=== PATIENT | male | born 1995 | race Caucasian/White ===

== ENCOUNTER 2017-04-10 08:36 | Emergency (ER) | payer OTHER ==
[~2017-04-10] VITALS: Ht 162.6 cm; Wt 65.9 kg
--- NOTE | 2017-04-10 10:22 | REP ---
Scrotal ultrasound, stat request: The patient complains of left groin/testicular pain. The testes are normal size. Right testis measures 4.3 x 2.1 x 2.7 cm. Left testis measures 4.3 x 2.2 x 2.9 cm. The testicular parenchyma is homogeneous. There are no testicular masses. With the Doppler assessment there is vascular flow in both testes, the Doppler resistive index of the intraparenchymal arteries on the right measuring 0.44 on the left 0.50. The right and left epididymal heads are unremarkable. There is a 6 mm tunica vaginalis cyst at the upper pole of the left testis medially, not related to the epididymis, but no clinical significance. Impression: Essentially negative scrotal ultrasound. A tunica vaginalis cyst of the left testis is incidentally identified. Signed by Marcio Christian MD 04/10/2017 10:14 A
--- NOTE | 2017-04-10 10:24 | REP ---
Ultrasonography of the left inguinal area for hernia: The study is performed without and with Valsalva. During Valsalva herniation of omental fat into the upper inguinal canal is identified. No bowel herniation is identified. The hernia is easily reducible. Signed by Marcio Christian MD 04/10/2017 10:16 A
[2017-04-10] MEDS ORDERED: IBUP80TA PO (11:07)
[2017-04-10 11:21] VITALS: BP 118/63
== END 2017-04-10 11:26 | disposition home or self-care (01) ==
LOC: M ED 08:36
DX: K40.90 Unilateral inguinal hernia, without obstruction or gangrene, not specified as recurrent (principal); F17.210 Nicotine dependence, cigarettes, uncomplicated

== ENCOUNTER 2017-07-01 07:35 | Day surgery (SDC) | payer OTHER ==
[~2017-07-01] VITALS: Ht 162.6 cm; Wt 65.8 kg
[~2017-07-01 07:35] MED LIST: IBUP80TA PO
[2017-07-01] MEDS ORDERED: LR 1,000 ML IV SCH ×2 (07:45→12:30)
[2017-07-01] MEDS ORDERED: BUPIVACAINE HCL 0.25% 30 ML VIAL As Ordered ONE (09:36)
[2017-07-01] MEDS ORDERED: LIDOCAINE 1% SDV INJ 30 ML VIAL As Ordered ONE (09:36)
[2017-07-01] MEDS ORDERED: ROCURONIUM BROMIDE 50 MG/5 ML VIAL/SYRINGE As Ordered ONE (10:22)
[2017-07-01] MEDS ORDERED: LIDOCAINE 2% INJ 100 MG/5 ML SDV (FOR ANES.) As Ordered ONE (10:22)
[2017-07-01] MEDS ORDERED: PROPOFOL 200 MG/20 ML VIAL As Ordered ONE ×2 (10:22→10:42)
[2017-07-01] MEDS ORDERED: fentaNYL 100 MCG/2 ML INJECTION (J3010) As Ordered ONE ×2 (10:22→10:28)
[2017-07-01] MEDS ORDERED: MIDAZOLAM INJ 2 MG/2 ML VIAL (J2250) As Ordered ONE (10:22)
[2017-07-01] MEDS ORDERED: ONDANSETRON 4MG/2ML VIAL (J2405) As Ordered ONE (10:32)
[2017-07-01] MEDS ORDERED: KETOROLAC 60 MG/2 ML VIAL (J1885) As Ordered ONE (10:32)
[2017-07-01] MEDS ORDERED: GLYCOPYRROLATE INJ 0.2 MG/ML 2 ML VIAL As Ordered ONE (10:32)
[2017-07-01] MEDS ORDERED: NEOSTIGMINE 10 MG/10 ML VIAL (J2710) As Ordered ONE (10:32)
[2017-07-01] MEDS ORDERED: HYDROmorphone HCL 2 MG/ML 1ML VIAL (J1170) As Ordered ONE (10:45)
[2017-07-01] MEDS ORDERED: DESFLURANE 240 ML INHALANT As Ordered ONE (11:13)
[2017-07-01] MEDS ORDERED: IBUPROFEN 400 MG TAB PO SCH (12:00)
[2017-07-01] MEDS ORDERED: fentaNYL 100 MCG/2 ML INJECTION (J3010) IV PRN (12:30)
[2017-07-01] MEDS ORDERED: NORCO, ANEXSIA 5/325MG TABLET (HYDROcodone/ACETAMINOPHEN) PO PRN (12:30)
[2017-07-01] MEDS ORDERED: ONDANSETRON 4MG/2ML VIAL (J2405) IV PRN (12:30)
[2017-07-01] MEDS ORDERED: ACETAMINOPHEN TAB 650MG DOSE (2X325MG) PO PRN (12:30)
[2017-07-01] MEDS ORDERED: NORCOTAB PO (14:03)
[2017-07-01 14:15] VITALS: BP 115/70
--- NOTE | 2017-07-02 23:27 | RO ---
DATE OF PROCEDURE: 07/01/2017 PREOPERATIVE DIAGNOSIS: Left inguinal hernia. POSTOPERATIVE DIAGNOSIS: Indirect left inguinal hernia. PROCEDURE PERFORMED: Left inguinal herniorrhaphy with Ultrapro mesh. SURGEON: Vitaly Camacho MD ANESTHESIA: General. INDICATIONS FOR PROCEDURE: The patient is a 22-year-old man with a history of a complete reducible left inguinal hernia. He is now for repair. OPERATIVE PROCEDURE: The patient was placed under general endotracheal anesthesia. The patient's lower abdomen, groins and genitalia were prepped and draped in a sterile fashion. An approximately 6-7 cm oblique left lower quadrant skin incision was made over the course of the inguinal canal. The incision was deepened through the subcutaneous tissues using the cautery. The external oblique was identified and opened in the direction of its fibers into the external ring. The spermatic cord was then dissected free from surrounding structures at the external ring. Some of the cremaster fibers were divided with the cautery. The cord was elevated with a Burlison drain. Dissection then was carried out within the cord with identification of a hernia sac. This was somewhat scarred to the surrounding tissues consistent with a longstanding hernia. The sac was opened to facilitate dissection and there were no adherent contents. The sac did extend down into the upper portion of the scrotum. The sac was transected leaving the distal portion within the scrotum. The proximal portion was dissected free proximally. The spermatic vessels and the vas deferens were identified and preserved. The sac was suture ligated at its neck with a #0 Vicryl and excised. A small frond of preperitoneal fat was also excised after ligation as well. These were sent together as a specimen. The hernia sac neck retracted nicely beneath the inguinal floor. I elected to place a piece of Ultrapro mesh as reinforcement for the inguinal floor and to narrow the internal inguinal ring. The 6 x 11 cm piece of Ultrapro was selected. This was lot number [id number]. The mesh was trimmed to fit the space and split laterally to fit about the spermatic cord. This was sutured at the pubic tubercle with a #3-0 Prolene which was carried along the lateral border of the mesh suturing this to the shelving edge of the inguinal ligament. Medially the mesh was tacked to the underlying muscle and fascia using interrupted simple sutures of #3-0 Vicryl. The tails of the mesh were overlapped lateral to the spermatic cord and sutured with #3-0 Vicryl. This appeared to give nice placement of the mesh. Some 0.25% Marcaine was infiltrated into the inguinal floor. The external oblique was closed with a running suture of #0 Vicryl. The subcutaneous tissues were closed with chromic and the skin edges were approximated with a running subcuticular #4-0 Vicryl and Steri-Strips. Additional 0.25% Marcaine was infiltrated about the wound. A sterile dressing was applied. The patient tolerated the procedure well without apparent complication. He was awakened in the operating room, extubated and moved to the recovery room in stable condition. JAMI
== END 2017-07-01 14:15 | disposition home or self-care (01) ==
LOC: M SDC 07:35
PROVIDERS: ATTEND Surgery
DX: K40.90 Unilateral inguinal hernia, without obstruction or gangrene, not specified as recurrent (principal); Z72.0 Tobacco use
CPT/HCPCS: 49505; 88302; C1781; J1170; J1885; J2250; J2405; J2710; J3010

== ENCOUNTER 2018-01-18 14:56 | Emergency (ER) | payer OTHER ==
[2018-01-18] MEDS: NS 1,000 ML IV (14:42)
[2018-01-18] MEDS: MORPHINE 4 MG/ML 1ML VIAL/SYRINGE (J2270) IV (14:43)
[2018-01-18 15:37] LABS: BASO % 0.7 % (0.0-1.0); EOS # 0.2 10^3/uL (0.0-0.50); EOS % 3.1 % (0.0-3.0); HEMATOCRIT 49.3 % (42.0-52.0); HEMOGLOBIN 16.8 g/dl (13.5-17.5); IMMATURE GRANULOCYTE % 0.2 % (0-3.0); LYMPH # 1.9 10^3/uL (1.5-6.5); LYMPH % 32.3 % (24.0-44.0); MEAN CORPUSCULAR HEMOGLOBIN 31.1 pg (27.0-33.0); MEAN CORPUSCULAR HGB CONC 34.1 g/dl (32.0-36.5); MEAN CORPUSCULAR VOLUME 91.3 fl (80.0-96.0); MONO # 0.6 10^3/uL (0.0-0.8); MONO % 10.7 % (0.0-5.0); NEUTROPHILS # 3.1 10^3/uL (1.8-7.7); PLATELET COUNT, AUTOMATED 301 10^3/uL (150-450); RED CELL DISTRIBUTION WIDTH 11.8 % (11.5-14.5); WHITE BLOOD COUNT 5.8 10^3/uL (4.0-10.0)
[2018-01-18] MEDS ORDERED: ISOVUE-370 76% 100ML VIAL (Q9967) As Ordered (15:58)
[2018-01-18 15:59] LABS: ALBUMIN 4.4 GM/DL (3.2-5.2); ALBUMIN/GLOBULIN RATIO 1.33 (1.00-1.93); ALKALINE PHOSPHATASE 96 U/L (45-117); ALT/SGPT 20 U/L (12-78); ANION GAP 5 MEQ/L (8-16); AST/SGOT 14 U/L (7-37); BILIRUBIN,DIRECT 0.1 MG/DL (0.0-0.2); BILIRUBIN,TOTAL 0.4 MG/DL (0.2-1.0); BLOOD UREA NITROGEN 12 MG/DL (7-18); CALCIUM LEVEL 9.6 MG/DL (8.5-10.1); CARBON DIOXIDE LEVEL 30 MEQ/L (21-32); CHLORIDE LEVEL 105 MEQ/L (98-107); CREATININE FOR GFR 1.14 MG/DL (0.70-1.30); GLUCOSE, FASTING 81 MG/DL (70-100); POTASSIUM SERUM 4.4 MEQ/L (3.5-5.1); SODIUM LEVEL 140 MEQ/L (136-145); TOTAL PROTEIN 7.7 GM/DL (6.4-8.2)
== END 2018-01-18 18:30 | disposition home or self-care (01) ==
LOC: M ED 14:56
DX: S29.012A Strain of muscle and tendon of back wall of thorax, initial encounter (principal); S80.02XA Contusion of left knee, initial encounter; V43.62XA Car passenger injured in collision with other type car in traffic accident, initial encounter; Y92.410 Unspecified street and highway as the place of occurrence of the external cause; Z87.891 Personal history of nicotine dependence
CPT/HCPCS: J2270

== ENCOUNTER 2018-06-25 23:03 | Emergency (ER) | payer OTHER ==
[2018-06-25] MEDS: LIDOCAINE 1% MDV 20ML VIAL SC (23:30)
[2018-06-26] MEDS ORDERED: POLYSPORIN TOPICAL OINTMENT 15GM As Ordered (00:02)
== END 2018-06-26 00:10 | disposition home or self-care (01) ==
LOC: M ED 23:03
DX: S01.112A Laceration without foreign body of left eyelid and periocular area, initial encounter (principal); W22.8XXA Striking against or struck by other objects, initial encounter; Y92.018 Other place in single-family (private) house as the place of occurrence of the external cause
CPT/HCPCS: 12011